=== PATIENT | female | born 1960 | race Caucasian/White ===

== ENCOUNTER 2016-12-14 06:27 | Emergency (ER) | payer OTHER ==
[2016-12-14 06:52] VITALS: BP 157/80; PULSE 82; TEMP 98.1; BMI 24.3
[2016-12-14] MEDS ORDERED: TETRACAINE 0.5% OPHTH SOLN 2 ML BOTTLE ONE (07:01)
[2016-12-14] MEDS ORDERED: FLUORESCEIN NA 1 EA STRIP ONE (07:02)
--- NOTE | 2016-12-14 07:08 | PDOC ---
History of Present Illness - General Chief Complaint: Eye Problem Stated Complaint: LT EYE HEMATOMA Time Seen by Provider: 12/14/16 06:29 - History of Present Illness Initial Comments: 12/14/16 07:09 This otherwise healthy 56-year-old woman presents with nonpainful red discoloration of her left thigh for the last hour. Patient was getting ready for work when she had very mild discomfort and noticed some redness in the conjunctiva of her eye. She looked closely in the mirror and noted large red area of the conjunctiva. She denies trauma to the area and has had no discharge or crusting of her eyelashes. Patient denies change in her vision. Patient states that she has had a mild cough related to ALLERGIES for a few days but denies vigorous paroxysm of coughing. She has had no recent vomiting. No previous history of some conjunctival hematoma. She denies easy bruising/ bleeding or any difficulty with wound healing Past History - Past Medical History Allergies/Adverse Reactions: Allergies Allergy/AdvReac Type Severity Reaction Status Date / Time No Known Allergies Allergy Unverified 12/14/16 06:49 Home Medications: Ambulatory Orders NK [No Known Home Medication] 12/14/16 - Psycho/Social/Smoking Cessation Hx Suicidal Ideation: No Smoking History: Never smoked Review of Systems - Review of Systems Able to Perform ROS?: Yes *Physical Exam - Vital Signs Last Vital Signs Temp Pulse Resp BP Pulse Ox 98.1 F 82 16 157/80 98 12/14/16 06:49 12/14/16 06:49 12/14/16 06:49 12/14/16 06:49 12/14/16 06:49 - Physical Exam Comments: Adult female, alert and oriented 3, mildly anxious Left eye: Sub-conjunctival hematoma involving both medial and lateral aspects ( lateral > medial) of the orbit Anterior chamber normal; pupil round, 3 mm and briskly reactive EOMI Right eye normal without evidence of subcutaneous conjunctival hematoma or other abnormality Medical Decision Making - Medical Decision Making 2 drops of tetracaine ophthalmic solution placed in left eye. Fluorescein staining of the cornea revealed no evidence of abrasion/laceration or foreign body Patient states that her collections manager, Dr. De Luna of [place] has been contacted and will see her later this morning. The patient has been advised that sub conjunctival hematoma is not dangerous but she should keep her head elevated and avoid sneezing/coughing/keeping her head low for any protracted period of time. She should return to the emergency room if she has any increase in pain/change in vision or crusting of her eyelashes. *DC/Admit/Observation/Transfer Diagnosis at time of Disposition: Subconjunctival hematoma Qualifiers: Laterality: left Qualified Code(s): H11.32 - Conjunctival hemorrhage, left eye - Discharge Dispostion Disposition: HOME Condition at time of disposition: Stable - Referrals Referrals: Catherine Duque [Primary Care Provider] - - Patient Instructions Printed Discharge Instructions: DI for Subconjunctival Hemorrhage Additional Instructions: followup with your collections manager later this AM as planned cool compresses to eye as needed keep head elevated
== END 2016-12-14 07:11 | disposition home or self-care (01) ==
LOC: FER 06:27
DX: H11.32 Conjunctival hemorrhage, left eye (principal)
CPT/HCPCS: 99281-25